=== PATIENT | female | born 1975 | race Two or more races ===

== ENCOUNTER 2025-04-20 12:30 | Outpatient (CLI) | payer MEDICAID ==
[2025-04-20] MEDS ORDERED: GADOTERATE MEGLUMINE 7.5 MMOL/15 ML VIAL IV ONE (14:34)
--- NOTE | 2025-04-20 17:32 | RADIOLOGY REPORT ---
PROCEDURE: MR MRI HEAD INDICATION: HEADACHE EXAM DATE: 04/20/2025 01:29 PM COMPARISON: None TECHNIQUE: MRI of the brain with and without 15 cc clariscan intravenous contrast. FINDINGS: Diffusion weighted images of the brain demonstrate no evidence of acute infarction. There is no evidence of acute intracranial hemorrhage, extra-axial collection, midline shift, herniat ion or hydrocephalus. The ventricles, sulci and cisterns appear age appropriate. The signal intensities of the brain parenchyma are within normal limits. Extra-axial enhancing mass in the right frontal lobe measuring up to 15 mm consistent with a meningio ma. There are no signal abnormalities on the susceptibility weighted sequences. The major vascular flow voids are present. The visualized paranasal sinuses and mastoid air cells are clear. The surrounding soft tissues and o sseous structures are unremarkable. IMPRESSION: 1. No evidence of acute infarction, intracranial hemorrhage, or hydrocephalus. Right frontal meningi alysha measuring up to 15 mm. Clinical correlation and continued follow-up is recommended. HS:Y
== END 2025-04-20 23:59 | disposition home or self-care (01) ==
LOC: MRI 12:30
PROVIDERS: ATTEND Family Medicine
DX: D32.0 Benign neoplasm of cerebral meninges (principal); R51.9 Headache, unspecified
CPT/HCPCS: 70553; A9575